=== PATIENT | male | born 1970 | race Caucasian/White ===

== ENCOUNTER 2020-06-08 09:53 | Emergency (ER) | payer BC, SELFPAY ==
[2020-06-08 09:59] VITALS: BP 125/76; PULSE 91; RESP 12; TEMP 36.7; O2SAT 99
[2020-06-08 10:02] VITALS: PULSE 90; RESP 12; O2SAT 99
--- NOTE | 2020-06-08 10:07 | ED.URI ---
HPI - URI/Sore Throat General Chief Complaint: Upper Respiratory Infection Stated Complaint: cough/heavy chest/meraz/body aches Time Seen by Provider: 06/08/20 10:08 Source: patient and RN notes reviewed Mode of arrival: ambulatory Limitations: no limitations History of Present Illness HPI Narrative: 49-year-old male who presents to [facility] care with complaints of lingering cough since .Patient states that he had 101F temperature on the 27th and he states that he went to [facility] and had COVID test for which he was negative. Patient states that he has had the lingering cough since and some sinus drainage, this morning he awoke with heaviness in chest with his cough, headache, achy joints and low grade temperature of 99.1F. Patient states that he took some Ibuprofen this morning which did help his headache. MD elicited complaint: cough Pertinent past history: seasonal allergies Onset (ago): day(s) Able to tolerate fluids by mouth: Yes Associated symptoms: fever, myalgias, rhinorrhea, nasal congestion and cough Treatments prior to arrival: ibuprofen and other (Mucinex and Irene) Related Data Allergies Allergy/AdvReac Type Severity Reaction Status Date / Time amoxicillin Allergy Unknown RASH Verified 06/08/20 10:10 clavulanic acid Allergy Unknown RASH Verified 06/08/20 10:10 Review of Systems Review of Systems: Narrative: CONSTITUTIONAL: reports intermittent fever, chills, or sweats. EYES: Denies visual changes, redness, or discharge. ENT: Positive rhinorrhea, congestion, no sore throat, or otalgia. CARDIOVASCULAR:Reports heaviness in chest with cough,no palpitations, or edema. RESPIRATORY:Positive lingering cough denies dyspnea.heaviness in chest with cough and with deep breathing. GASTROINTESTINAL: Denies abdominal pain, nausea, vomiting, or diarrhea. GENITOURINARY: Denies dysuria or hematuria. SKIN: Denies rash or itching. MUSCULOSKELETAL: Denies back pain, joint pain, body aches NEUROLOGIC: Positive frontal headache and facial pressure, no numbness, or weakness. PSYCHIATRIC: positive history of anxiety or depression. All systems reviewed & are unremarkable except as noted in HPI and below PMFSH Past Medical History Medical History (Updated 06/08/20 @ 10:29 by Basia Norris NP) Anxiety History of sinus problem Social History Social History (Updated 06/08/20 @ 15:48 by JOSE Miranda Smoking status: Never smoker Alcohol intake: current Alcohol use details: social Substance use: never Living arrangements: with family Gender identity (if verbalized by the patient): Male Comments At time of signature, agree with nursing past medical, surgical, social history. There is no relevant family history pertinent to the presenting complaint Exam Narrative: Exam Narrative: GENERAL: Well-appearing, well-nourished, and in no acute distress. HEAD: Normocephalic, atraumatic. EYES: PERRLA and EOMI. ENT: Nares red, clear to light yellow rhinorrhea no epistaxis. headache and sinus pressure to face, Mucous membranes moist.TMs normal with good light reflex, throat light red with no lesions or exudates, no tonsil enlargement, post nasal drainage in back of throat NECK: Supple. no lymphadenopathy CHEST: Clear to auscultation, able to take deep breaths without acute discomfort. No respiratory distress,cough rarely productive SAO2 99% on room air HEART: Regular rate and rhythm. No murmur heard. Normal peripheral pulses. ABDOMEN: Soft, nontender, nondistended, normal active bowel sounds. EXTREMITIES: Normal range of motion. No edema. SKIN: Warm, dry, no rash. NEURO: No focal deficits. Alert and oriented x3. Course Vital Signs Vital signs: Vital Signs Temperature 36.7 C 06/08/20 09:59 Pulse Rate 91 06/08/20 09:59 Respiratory Rate 12 06/08/20 09:59 Blood Pressure 125/76 06/08/20 09:59 Pulse Oximetry 99 06/08/20 09:59 Temperature 36.7 C 06/08/20 09:59 Pulse Rate 90 06/08/20 10:02 Respi
== END 2020-06-08 10:47 | disposition home or self-care (01) ==
PROVIDERS: Emergency Provider Registered Nurse; PCP Internal Medicine
DX: R05 Cough (principal); J01.40 Acute pansinusitis, unspecified; Z20.822 Contact with and (suspected) exposure to COVID-19
CPT/HCPCS: 87081; 87804; 87880; 99213; G0463

== ENCOUNTER 2020-06-08 10:43 | Outpatient (NON) | payer BC, SELFPAY ==
[2020-06-08 23:29] LABS: SARS-CoV-2 RNA PCR Negative
== END 2020-06-08 10:44 ==
LOC: ANHCOVIDDT 10:44
PROVIDERS: PCP Internal Medicine; Visit Provider Registered Nurse
DX: Z20.822 Contact with and (suspected) exposure to COVID-19 (principal); J01.90 Acute sinusitis, unspecified; R05 Cough
CPT/HCPCS: C9803; U0003